=== PATIENT | female | born 1975 | race Two or more races ===

== ENCOUNTER 2025-03-19 08:32 | Outpatient (AMB) | payer OTHER, SELFPAY ==
--- NOTE | 2025-03-19 08:36 | GYNCLNT_ITS ---
Vital Signs 03/19/25 08:46 Height 1.57 m Height Method Stated Weight 108.579 kg Weight Measurement Method Standing Scale BMI 43.7 BP 125/80 Blood Pressure Source Automatic Cuff Blood Pressure Location Left Upper Arm Position Sitting Respiration 14 Pulse 60 Pulse Source Monitor Temp 98.1 F Temp Source Oral Pulse Oximetry (%) 95 Oxygen Delivery Method Room Air Allergies/Home Meds Allergies & Medications Allergies No Known Allergies Allergy (Verified 03/19/25 08:37) Medication Reconciliation No Known Home Medications 03/11/22 [History Confirmed 03/19/25] Intake Visit Data Collection New Patient or Established: Established Patient (seen at [facility] within 3 years) Reason for Visit:: ANNUAL WELLNESS Seen by Clinical Staff ONLY (RN/MA): No 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 And 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 Assistant Required: No Do You Feel Safe at Home: Yes Authorities Contacted: N/A PCP or OBGYN visit in last 3 months: Yes Hx Now: No Are you currently on any form of Control: No Last menstrual period: 02/21/25 Pain Present Currently: No Pain Scale Used: Baxter-Nino/Numerical Pain scale:: 0 Smoking Status Smoking Status: Never smoker 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 The patient's mother suffered from breast cancer at age 42. The patient herself has been checked for BRCA1 BRCA2 and it was negative. Questionnaires Covid-19 Vaccine Questionnaire Has patient been vacinated for Covid-19 Have you been vacinated for Covid-19: Yes PHQ-9 PHQ-2 Over the last 2 weeks, how often have you been bothered by any of the following problems? 1. Little interest or pleasure in doing things: not at all 2. Feeling down, depressed, or hopeless: not at all Total score: 0 PHQ-9 3. Trouble falling or staying asleep, or sleeping too much: Not at all 4. Feeling tired or having little energy: Not at all 5. Poor appetite or overeating: Not at all 6. Feeling bad about yourself - or that you are a failure or have let yourself or your family down: Not at all 7. Trouble concentrating on things, such as reading the newspaper or watching television: Not at all 8. Moving or speaking so slowly that other people could have noticed? - Or the opposite - being so fidgety or restless that you have been moving around a lot more than usual: not at all 9. Thoughts that you would be better off or of hurting yourself in some way: Not at all Total score: 0 Source: Developed by Drs. Ced Wen, Kristin Farnsworth, Dash Baca and colleagues, with an educational osmar from [employer]. 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 Tobacco History Smoking Status: Never smoker Second Hand Smoke Exposure: No Alcohol History Alcohol Intake: Current Alcohol Intake Frequency: holidays/special occasions only Domestic Abuse History Do You Feel Safe at Home: Yes History of Present Illness HPI Narrative The patient is a 50-year-old -1-1-3 Who presents for an annual exam. She is still having regular cycles. Every once in a while they will spaced. She had a history of an endometrial ablation her cycles are quite light. She just had a mammogram recently through her primary care in 2024 that she states she will send me a copy she did have a colonoscopy in February because she was having diarrhea for a long period of time that she reports is normal. Her mother had breast cancer at age 42 she is unsure what her mother's BRCA1 BRCA2 status is but patient herself was checked for BRCA1 BRCA2 and its negative. On review of systems she reports she is generally healthy she has some sinus problems mild incontinence a little bit of irregular bleeding occasional heat hot and cold intolerance. No severe hot flashes or night sweats. Last menstrual period was 7-25. Last Pap was February 2024 she had a history of cryotherapy in 2017 and her Paps have been normal since then. Her 's had a vasectomy for contraception. She has a 24-year-old 22-year-old boy. They are both going to school to be teachers. She has a 16-year-old daughter who is a fam in high school. She had 1 miscarriage in 2004. Patient had an endometrial ablation in 2018 Menstrual character: irregular in timing Other pertinent information: Some heat and cold intolerance. No severe hot flashes. No vaginal dryness. Review of Systems Review of Systems Narrative Review of Systems: No significant hot flashes or vaginal dryness occasional heat and cold tolerance and occasional moodiness. Occasional mild incontinence. Some irregular bleeding. 's had a vasectomy for contraception and the patient has had a endometrial ablation. Exam General Limitations: no limitations General Appearance: alert, in no apparent distress, comfortable, cooperative, healthy appearing and well groomed Neck Neck exam: Present normal inspection, full ROM and trachea midline Chest Chest inspection: Present normal inspection and symmetric chest wall rise Resp Respiratory exam: Present normal lung sounds bilaterally Card Cardiovascular exam: Present regular rate, normal rhythm and normal heart sounds Abdominal Abdominal exam: Present soft and normal bowel sounds External exam: Present normal external exam (No significant cystocele or rectocele) Speculum exam: Present normal speculum exam Bimanual exam: Present normal bimanual exam (Uterus anteverted nontender. Normal size. No adnexal masses or tenderness.) Extremities Extremities exam: Present normal inspection and full ROM Psych Psychiatric exam: Present normal affect and normal mood Skin Skin exam: Present warm, dry, intact and normal color Office Procedures OB Clinic LOC & Office Proc's Nursing/Assessment Patient Status: Established Patient OB Clinic Nursing Assessment: Medication Reconciliation, Update PMH in EMR and Vital Signs OB Clinic Coordination of Care: Complex Care and Chronic Disease 1-5, Consent,records obtained, informed consent, Education Simp Pt/Fam, Lab and Imaging orders, Results/Orders obtained and Staff clarify orders Miscellaneous Interventions: Breast Exam and Pelvic/Pap Smear Set up Established Patient Charge Established Patient Point Assignment: 155 Established Patient Point Charge: EP Level 4 (120-155) Assessment & Plan Diagnosis / Problem List (1) Encounter for Routine Gynecological Examination: Qualifiers: Gynecological examination findings: abnormal findings ABSENT Qualified Code(s): Z01.419 - Encounter for gynecological examination (general) (routine) without abnormal findings Assessment and Plan: Pap with high-risk HPV performed. Breast exam done and encouraged. Menopause discussed. Healthy eating and exercise discussed. Weight bearing exercise for bone health encouraged. Patient just had a mammogram through her primary care she reports is normal and her she is planning to send me a copy. She is up-to-date with colon screening. She can follow-up yearly or as needed. INSTRUCTION LIBRARIAN: Papsmear Pap Smear Procedure Chaparone in room during procedure?: No Pre-op diagnosis general: Annual wellness exam Post-op diagnosis procedure note: Same Procedure Notes:: Pap with high-risk HPV performed Papsmear completed: yes
[2025-03-19 08:46] VITALS: BP 125/80; PULSE 60; RESP 14; TEMP 36.7; O2SAT 95; BMI 43.7
== END 2025-03-19 09:38 | disposition home or self-care (01) ==
LOC: HODSOBC 08:32
PROVIDERS: Supervising Provider Obstetrics & Gynecology; Visit Provider Obstetrics & Gynecology
DX: Z01.419 Encounter for gynecological examination (general) (routine) without abnormal findings (principal); Z11.51 Encounter for screening for human papillomavirus (HPV)
CPT/HCPCS: 99214; G0463